=== PATIENT | female | born 1995 | race Caucasian/White ===

== ENCOUNTER 2020-08-22 22:06 | Emergency (ER) | payer OTHER ==
--- NOTE | 2020-08-22 23:51 | EDM.PDOC ---
ED HPI GENERAL MEDICAL PROBLEM - General Chief Complaint: Skin Complaint Stated Complaint: RASHES Time Seen by Provider: 08/22/20 23:19 Source of Information: Reports: Patient, Family (Mother) History Limitations: Reports: No Limitations - History of Present Illness INITIAL COMMENTS - FREE TEXT/NARRATIVE: Ms. Bright is a very pleasant 24-year-old woman who now presents the ED stating that she and her mother are from [facility], but are on a [place] country road trip, hitting to [place]. She states that she was hiking in [place] on 08/08/2020, and may have been bitten by an insect at that time. She developed a fever this past 08/19/2020, with a T-max of 103.9 degrees on 08/20/2020. She was seen at a walk-in clinic in [place] on Thursday, where a CBC, urinalysis, and swab for the SARS-CoV-2 virus/influenza A + B viruses/RSV were performed. The patient's CBC revealed leukopenia of 1.42, with mild anemia of 13.5/39.1, and thrombocytopenia of 77,000. Her urinalysis was unremarkable, and her swab was completely negative. She was told that she likely had a vector borne illness, and was prescribed doxycycline 100 mg po BID x 14 days, which she started Thursday night; she has taken 4 doses so far. The patient now presents the ED because she developed a pruritic erythematous rash on her forehead, which has since extended down her face, neck, and onto her upper chest and upper back. Here in the ED, the patient is found to be hemodynamically stable, afebrile, saturating 99% on room air. She appears to be comfortable, in no acute distress. Prior to Thursday, the patient denies having a recent fever, chills, sore throat, ear pain, nasal or sinus congestion, cough, dyspnea, chest pain, palpitations, nausea, vomiting, constipation, diarrhea, abdominal pain, urinary symptoms, recent weight gain or weight loss, recent bloody bowel movements or black bowel movements, recent joint aches, headaches, or rashes. The patient's PCP is in [place]. The patient and her mother are only staying overnight, and intend to leave in the morning. - Related Data Allergies Allergy/AdvReac Type Severity Reaction Status Date / Time shellfish derived Allergy Rash Verified 08/22/20 22:23 tree nut Allergy Difficulty Verified 08/22/20 22:23 Swallowing Past Medical History HEENT History: Reports: Allergic Rhinitis - Past Surgical History HEENT Surgical History: Reports: Adenoidectomy, Oral Surgery (dental extractions), Tonsillectomy Social & Family History - Tobacco Use Tobacco Use Status *Q: Never Tobacco User - Caffeine Use Caffeine Use: Reports: Coffee, Soda - Alcohol Use Alcohol Use History: Yes Alcohol Use Frequency: Socially - Recreational Drug Use Recreational Drug Use: No - Living Situation & Occupation Living situation: Reports: Single, with Family Occupation: Unemployed ED ROS GENERAL - Review of Systems Review Of Systems: Comprehensive ROS is negative, except as noted in HPI. ED EXAM, SKIN/RASH Exam: See Below Exam Limited By: No Limitations General Appearance: Alert, WD/WN, No Apparent Distress Eye Exam: Bilateral Eye: EOMI, Normal Inspection Ears: Normal External Exam, Hearing Grossly Normal Nose: Normal Inspection Throat/Mouth: Normal Inspection, Normal Lips, Normal Voice, No Airway Compromise Head: Atraumatic, Normocephalic Neck: Normal Inspection, Full Range of Motion Respiratory/Chest: No Respiratory Distress, Lungs Clear, Normal Breath Sounds, No Accessory Muscle Use. No: Decreased Breath Sounds, Crackles, Rhonchi, Wheezing, Stridor, Prolonged Expiration Cardiovascular: Normal Peripheral Pulses, Regular Rate, Rhythm, No Edema, No Gallop, No JVD, No Murmur, No Rub Peripheral Pulses: 3+: Radial (L), Radial (R) GI/Abdominal: Normal Bowel Sounds, Soft, Non-Tender, No Organomegaly, No Distention, No Abnormal Bruit, No Mass Back Exam: Normal Inspection, Full Range of Motion, NT Extremities: Normal Inspection, Normal Range of Motion, No Pedal Edema, Normal Capillary Refill Neurological: Alert, Oriented, Normal Cognition, No Motor/Sensory Deficits Psychiatric: Normal Affect Skin: Warm, Dry, Intact, Rash (Erythematous, blanchable maculopapular to confluent rash to the forehead, face, circumferential neck, and upper chest, anterior and posterior, that spares the extremities and lower two thirds of the trunk) Lymphatic: No Adenopathy Course - Vital Signs Last Recorded V/S: Last Vital Signs Temp 37.3 C 08/22/20 22:23 Pulse 87 08/22/20 22:23 Resp 18 08/22/20 22:23 BP 126/95 H 08/22/20 22:23 Pulse Ox 99 08/22/20 22:23 - Orders/Labs/Meds Orders: Active Orders 24 hr Category Date Time Status BLOOD SMEARS TO PATHOLOGIST [REF] Routine Lab 08/22/20 23:50 Received Labs: Laboratory Tests 08/22/20 08/22/20 08/22/20 Range/Units 23:50 23:50 23:50 WBC 1.99 L* (3.98-10.04) K/mm3 RBC 4.01 (3.98-5.22) M/mm3 Hgb 12.3 (11.2-15.7) gm/dl Hct 35.8 (34.1-44.9) % MCV 89.3 (79.4-94.8) fl MCH 30.7 (25.6-32.2) pg MCHC 34.4 (32.2-35.5) g/dl RDW Std Deviation 41.7 (36.4-46.3) fL Plt Count 59 L (182-369) K/mm3 MPV 10.5 (9.4-12.3) fl Neutrophils % (Manual) 34 L (40-60) % Band Neutrophils % 2 (0-10) % Lymphocytes % (Manual) 58 H (20-40) % Immat Monocytes % (Man) 0 Monocytes % (Manual) 3 (2-10) % Eosinophils % (Manual) 0 L (0.7-5.8) % Basophils % (Manual) 1 (0.1-1.2) Metamyelocytes % 2 Myelocytes % 0 Promyelocytes % 0 Blast Cells % 0 Plasma Cell % (Manual) 0 Nucleated RBCs 0.0 % Platelet Estimate Marked dec RBC Morph Comment Normal Percent Retic 0.75 (0.50-1.70) % Sodium 144 (136-145) mEq/L Potassium 4.4 (3.5-5.1) mEq/L Chloride 108 H (98-107) mEq/L Carbon Dioxide 26 (21-32) mEq/L Anion Gap 14.4 (5-15) BUN 11 (7-18) mg/dL Creatinine 0.8 (0.55-1.02) mg/dL Est Cr Clr Drug Dosing 92.41 mL/min Estimated GFR (MDRD) > 60 (>60) mL/min BUN/Creatinine Ratio 13.8 L (14-18) Glucose 105 H (70-99) mg/dL Calcium 8.3 L (8.5-10.1) mg/dL Magnesium 1.7 L (1.8-2.4) mg/dL Total Bilirubin 0.2 (0.2-1.0) mg/dL AST 54 H (15-37) U/L ALT 63 H (14-59) U/L Alkaline Phosphatase 44 L (46-116) U/L C-Reactive Protein 5.1 H* (<1.0) mg/dL Total Protein 6.4 (6.4-8.2) g/dl Albumin 3.1 L (3.4-5.0) g/dl Globulin 3.3 gm/dL Albumin/Globulin Ratio 0.9 L (1-2) Meds: Medications Discontinued Medications Generic Name Dose Route Start Last Admin Trade Name Freq PRN Reason Stop Dose Admin Ceftriaxone Sodium 1 gm 08/23/20 01:41 08/23/20 02:06 Ceftriaxone 1 Gm Vial IM 08/23/20 01:42 1 gm ONETIME STA Administration - Re-Assessments/Exams Free Text/Narrative Re-Assessment/Exam: 08/22/20 23:42 As above, the patient was hiking in [place] on 08/08/2020, during which time it is possible she was bitten by an insect. She developed a fever this past 08/19/2020, with a T-max of 103.9 on 08/20/2020. She was seen at a walk-in clinic in [place] that same day, where a CBC revealed leukopenia of 1.42 with 31% bandemia, an H/H of 13.5/39.1, and thrombocytopenia of 77,000. A urinalysis was unremarkable, as was a swab for the SARS-CoV-2 virus/influenza A + B viruses and RSV. She was prescribed doxycycline 100 mg po BID x 14 days that she started Thursday night. She then developed a maculopapular to confluent pruritic rash on her forehead which has since extended down to her upper anterior and posterior chest. No symptoms of angioedema, dyspnea, or wheezing. Here in the ED, she is afebrile, saturating 99% on room air. Her physical exam, other than the rash, is grossly unremarkable. The concern is that her presentation is due to a vector borne illness, likely anaplasmosis or babesiosis, although it is also possible that her symptoms up until today were due to one condition, and that her rash is now due to a drug eruption or photodermatitis due to doxycycline. I have ordered some blood tests to evaluate. 08/23/20 01:37 The patient's CBC is remarkable for leukopenia of 1.99, with 34% neutrophils, 2% bands, 50% lymphocytes, 1% basophils, and 0% eosinophils, and thrombocytopenia of 59,000, with the remainder of her CBC being unremarkable. Her CMP is remarkable for slight hyperglycemia of 105, and AST/ALT slightly elevated at 54/63, respectively, with remainder of her CMP being unremarkable. Her magnesium level is slightly depressed at 1.7. Her C-reactive protein is elevated at 5.1. Case discussed with Mayra at [facility] Call at 01:12. Unfortunately, they do not have an Infectious Disease specialist early intervention school psychologist. Case then discussed with Deandre at [facility] Call at 01:17. Case then discussed with Dr. Ahn, Infectious Disease specialist, at 01:29. He agreed that the patient is likely suffering from anaplasmosis or babesiosis. He felt that it is unlikely that the patient's rash is a drug rash. He recommended that I send a peripheral blood smear. He recommended that we give the patient a single dose of Rocephin, and have her continue with doxycycline. He recommended I remind the patient to stay out of the sun, as doxycycline can cause photodermatitis. 08/23/20 01:58 Test results and my conversation with Dr. Ahn discussed with the patient and her mother. She will be given an injection of Rocephin prior to being discharged home, then continue to take her previously prescribed doxycycline. She is to avoid the sun. She will need to make arrangements to get the results of the blood peripheral smear (which is a send-out test) to her PCP. Departure - Departure Time of Disposition: 02:01 Disposition: Home, Self-Care 01 Condition: Good Clinical Impression: Anaplasmosis - Discharge Information *PRESCRIPTION DRUG MONITORING PROGRAM REVIEWED*: Not Applicable *COPY OF PRESCRIPTION DRUG MONITORING REPORT IN PATIENT MÓNICA: Not Applicable Instructions: Ehrlichiosis and Anaplasmosis, [id number] Referrals: PCP,Not In Area [Ordering Only Provider] - Forms: ED Department Discharge Additional Instructions: You were seen in the emergency room after developing a fever on Thursday, followed by a rash yesterday, in the setting of possibly being bitten by an insect in [place] on 08/08/2020. Work-up in the ER included several blood tests. Your CBC found her WBC count to be low at 1.99, and your platelets to be low at 59,000. Your chemistry panel found your transaminases (liver enzymes) to be slightly elevated. Your C-reactive protein (a measure of inflammation) was found to be mildly elevated at 5.1. 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 These are viruses that can be transferred by a tick that is common in [place]. Your case was discussed with the Infectious Disease specialist Dr. Dominic Ahn, in [place]. He recommended that you receive a single dose of the antibiotic ceftriaxone (Rocephin), and that you continue with your previously prescribed doxycycline, 100 mg twice a day, to complete a 2-week course. We recommend that you avoid the sun, as doxycycline can cause a photosensitive rash. A blood peripheral smear has been sent. This is a send out test, and it is not immediately clear how long it will take to get the results, however, you will need to make arrangements to have the results of the test sent to your doctor in [place]. If any other problems, please do not hesitate to return to the ER. Sepsis Event Note (ED) - Evaluation Sepsis Screening Result: No Definite Risk - Focused Exam Vital Signs: Vital Signs Temp Pulse Resp BP Pulse Ox 08/22/20 22:23 37.3 C 87 18 126/95 H 99 - My Orders Last 24 Hours: My Active Orders 08/22/20 23:50 BLOOD SMEARS TO PATHOLOGIST [REF] Routine - Assessment/Plan Last 24 Hours: My Active Orders 08/22/20 23:50 BLOOD SMEARS TO PATHOLOGIST [REF] Routine
[2020-08-23] MEDS ORDERED: cefTRIAXone 1 GM Vial IM STA (01:41)
== END 2020-08-23 02:14 | disposition home or self-care (01) ==
LOC: JD.ED 22:06
DX: A77.49 Other ehrlichiosis (principal); Z91.09 Other allergy status, other than to drugs and biological substances; Z91.013 Allergy to seafood
CPT/HCPCS: 36415; 80053; 83735; 85007; 85027; 85045; 85046; 86140; 96372; 99283; J0696